=== PATIENT | female | born 1950 | race African-American/Black ===

== ENCOUNTER 2016-07-31 13:03 | Emergency (ER) | payer MEDICARE, MEDICAID ==
[2016-07-31] MEDS ORDERED: Benzonatate 100 MG CAP ONE (14:08)
[2016-07-31] MEDS ORDERED: Nitroglycerin 0.4 MG TAB 1 EACH ONE (14:08)
--- NOTE | 2016-07-31 14:28 | ERRECORD ---
[facility] EMERGENCY RECORD HPI COUGH (15:48 LHOD) CHIEF COMPLAINT: Patient presents for evaluation of cough. HISTORIAN: History provided by patient. TIME COURSE: 3 DAYS OF DRY COUGH. ASSOCIATED WITH: No associated chest pain, No associated chills, No associated diarrhea, No associated diaphoresis, No associated dyspnea on exertion, No associated fever, No associated nausea, No associated orthopnea, No associated palpitations, No associated peripheral edema, No associated pleuritic symptoms, No associated stridor, No associated wheezing. EXACERBATED BY: Patient's condition exacerbated by nothing. RELIEVED BY: Patient's condition relieved by nothing. ROS (15:50 LHOD) CONSTITUTIONAL: Historian denies chills, denies fever. ENT: Historian denies stridor. CARDIOVASCULAR: Historian denies chest pain, denies diaphoresis, denies dyspnea on exertion, denies orthopnea, denies palpitations. RESPIRATORY: Historian reports cough, denies stridor, denies wheezing. GI: Historian denies abdominal pain, denies diarrhea, denies nausea, denies vomiting. SKIN: Historian denies rash. NEUROLOGIC: Historian denies headache. HEMO/LYMPHATIC: Historian denies easy bruising. ALLERGIC/IMMUNOLOGIC: Historian denies hives. NOTES: All systems reviewed, negative except as described above. PAST MEDICAL HISTORY MEDICAL HISTORY: Past medical history includes cardiac history, coronary artery disease, congestive heart failure, Past medical history includes history of diabetes, Type II, Past medical history includes history of hypertension, which has been treated, Flu vaccine not up to date, Tetanus not up to date, Pneumococcal vaccine not up to date, Past medical history includes cardiac history, congestive heart failure, Past medical history includes history of diabetes, on insulin, Past medical history includes history of hyperlipidemia, high cholesterol, Past medical history includes history of hypertension, which has been treated. (13:35 MDEB) FEMALE SURGICAL HISTORY: Patient has no surgical history, Patient's surgical history not available at time of evaluation. (13:35 MDEB) PSYCHIATRIC HISTORY: Notes: DENIES, Notes: UNKNOWN. (13:35 MDEB) SOCIAL HISTORY: Patient denies alcohol use, Patient denies drug use, Patient has no smoking history, Patient denies alcohol use, Patient denies drug use, Patient has no smoking history, Lives at home, with family, Patient denies alcohol use, Patient denies drug use, Patient has no smoking history, Lives at home, with family, Patient denies alcohol use, Patient denies drug use, Patient has no &a-1R&a+25V*p+0X*q5806O*c202B*c15G*c2P*p-0X&a-25V&a+1R Name: Karla Drummond : 1950 F66 MedRec: [id number] AcctNum: [id number] Prepared: Sat Jul 31, 2016 15:57 by Interface Page 1 of 3 pMD [facility] EMERGENCY RECORD smoking history. (13:35 MDEB) NOTES: Nursing records reviewed, SISTER AND SON HERE WITH SAME SYMPTOMS. (15:52 LHOD) KNOWN ALLERGIES No Known Allergies No Known Drug Allergies (Unconfirmed) CURRENT MEDICATIONS No recorded medications VITAL SIGNS (13:33 MDEB) VITAL SIGNS: BP: 201/67, Pulse: 87, Resp: 18, Temp: 98.4 (Tympanic), Pain: 0, O2 sat: 95 on Room Air, Time: 07/31/2016 13:33. PHYSICAL EXAM (15:50 LHOD) CONSTITUTIONAL: Vital Signs Reviewed, Patient afebrile, Pulse normal, Blood pressure, hypertensive, Respiratory rate normal, Normal pulse oximetry, Patient appears non toxic, Patient alert and oriented to person, place and time, APPEARS OLDER THAN STATED AGE. WALKS STOOPED. EYES: Pupils equally round and reactive to light, Extraocular muscles intact. ENT: Pharynx exam normal. RESPIRATORY CHEST: Respiratory exam included findings of no respiratory distress, Breath sounds clear. CARDIOVASCULAR: Cardiovascular exam included findings of heart rate regular rate and rhythm, Heart sounds normal. ABDOMEN FEMALE: Abdominal exam included findings of abdomen nontender. UPPER EXTREMITY: Upper extremity exam normal. LOWER EXTREMITY: Left lower leg exam included findings of, swelling, Right lower leg exam included findings of, swelling, BILATERAL 1 PLUS EDEMA. NEURO: AWAKE, ALERT. SKIN: no rash. MEDICATION ADMINISTRATION SUMMARY Drug Name: nitroglycerin sublingual, Dose Ordered: 0.4 mg, Route: Sublingual, Status: Canceled, Time: 14:10 07/31/2016, Drug Name: benzonatate, Dose Ordered: 200 mg, Route: Oral, Status: Given, Time: 14:10 07/31/2016, Detailed record available in Medication Service section. PROBLEM LIST No recorded problems DIAGNOSIS (14:06 LHOD) FINAL: PRIMARY: VIRAL URI, ADDITIONAL: POORLY &a-1R&a+25V*p+0X*h6580L*c202B*c15G*c2P*p-0X&a-25V&a+1R Name: Karla Drummond : 1950 F66 MedRec: [id number] AcctNum: [id number] Prepared: Sat Jul 31, 2016 15:57 by Interface Page 2 of 3 pMD [facility] EMERGENCY RECORD CONTROLLED HYPERTENSION. PRESCRIPTION (14:06 LHOD) benzonatate: CAPSULE (HARD, SOFT, ETC.) : 200 mg : ORAL : Quantity: 1 Unit: tab(s) Route: ORAL Schedule: every 8 hours PRN Dispense: 10 May substitute. Refills: No Refills . NOTES: 1 REFILL No Refills. DISPOSITION PATIENT: Disposition Type: Discharge, Disposition: *Discharge Home, Condition: Good. (14:06 LHOD) Patient left the department. (14:23 MDEB) Valle: LHOD=MD Marcos, Hugo MDEB=RACHELLE Stewart, Radha &a-1R&a+25V*p+0X*z3985G*c202B*c15G*c2P*p-0X&a-25V&a+1R Name: Karla Drummond : 1950 F66 MedRec: [id number] AcctNum: [id number] Prepared: Sat Jul 31, 2016 15:57 by Interface Page 3 of 3 pMD MTDD
--- NOTE | 2016-07-31 14:34 | PICIS ---
[facility] EMERGENCY RECORD TRIAGE (13:35 MDEB) PATIENT: NAME: Karla Drummond, AGE: 66, GENDER: female, : Tue1950, TIME OF GREET: Sat Jul 31, 2016 13:04, PREFERRED LANGUAGE: Albanian, RACE: Black or , ETHNICITY: Not or , FALL RISK: NO, ECODE BILLING MAP: [facility], SSN: [id number], Zip Code: [address], KG WEIGHT: 130.63, PHONE: , , , PERSON ID: [id number], PCP: MD OAKES IMELDA. (13:35 MDEB) TRIAGE NOTES: COUGH X 3 DAYS. (13:35 MDEB) COMPLAINT: FLU LIKE SYMPTOMS. (13:35 MDEB) ADMISSION: URGENCY: 3 Urgent, ADMISSION SOURCE: Home, TRANSPORT: Walk-in, BED: TRIAGE. (13:35 MDEB) PAIN: Notes: DENIES. (13:35 MDEB) TRIAGE SCREENING: Patient denies suicidal ideation, Patient denies presence of domestic violence. (13:35 MDEB) PROVIDERS: TRIAGE NURSE: Radha Stewart RN. (13:35 MDEB) VITAL SIGNS: BP 201/67, Pulse 87, Resp 18, Temp 98.4, (Tympanic), Pain 0, O2 Sat 95, on Room Air, Time 07/31/2016 13:33. (13:33 MDEB) PREVIOUS VISIT ALLERGIES: No Known Allergies. (13:35 MDEB) KNOWN ALLERGIES No Known Allergies No Known Drug Allergies (Unconfirmed) CURRENT MEDICATIONS No recorded medications VITAL SIGNS (13:33 MDEB) VITAL SIGNS: BP: 201/67, Pulse: 87, Resp: 18, Temp: 98.4 (Tympanic), Pain: 0, O2 sat: 95 on Room Air, Time: 07/31/2016 13:33. NURSING ASSESSMENT: RESPIRATORY /CHEST (13:42 MDEB) CONSTITUTIONAL: Patient arrives ambulatory, Gait steady, History obtained from patient, Patient appears comfortable, Patient cooperative, Patient alert, Oriented to person, place and time, Skin warm, Skin dry, Skin normal in color, Mucous membranes pink, Mucous membranes moist, Patient is well-groomed, Patient complains of COUGH X 3 DAYS, NO NOTED COUGH DURING TRIAGE. A FEBRILE. PAIN: Patient rates pain as 0 out of 10. RESPIRATORY/CHEST: Breath sounds clear, Respiratory assessment findings include respiratory effort easy, Respirations regular, Conversing normally, Neck and chest exam findings include trachea midline, Chest expansion equal, Chest movement symmetrical, Associated with cough, dry. ENT: Ear assessment findings include ear normal to inspection, Nasal assessment findings include nose normal to inspection, Mouth and throat assessment findings include mouth inspection normal, Mucous membranes pink, and moist, Able to swallow, Speech normal. NOTES: Emotional support needed and given, Patient tolerated &a-1R&a+25V*p+0X*f2675N*c202B*c15G*c2P*p-0X&a-25V&a+1R Name: Karla Drummond : 1950 F66 MedRec: [id number] AcctNum: [id number] Prepared: Sat Jul 31, 2016 16:03 by Interface Page 1 of 5 pMD [facility] EMERGENCY RECORD procedure well. SAFETY: Side rails up, Cart/Stretcher in lowest position, Family at bedside, Call light within reach, Hospital ID band on. NURSING PROCEDURE: DISCHARGE NOTE (14:15 MDEB) DISCHARGE: Patient discharged to home, ambulating without assistance, driving self, accompanied by other family member, Summary of Care printed/ provided, Patient requested and was provided an electronic copy of Discharge Instructions, Transition record given to patient, Discharge instructions given to patient, Simple or moderate discharge teaching performed, MEDICATIONS, Prescriptions given and instructions on side effects given, Above person(s) verbalized understanding of discharge instructions and follow-up care, Patient treated and evaluated by physician. BELONGINGS: Belongings remain with patient, Valuables remain with patient. NOTES: Emotional support needed and given, Patient tolerated procedure well. MEDICATION ADMINISTRATION SUMMARY Drug Name: nitroglycerin sublingual, Dose Ordered: 0.4 mg, Route: Sublingual, Status: Canceled, Time: 14:10 07/31/2016, Drug Name: benzonatate, Dose Ordered: 200 mg, Route: Oral, Status: Given, Time: 14:10 07/31/2016, Detailed record available in Medication Service section. MEDICATION SERVICE (14:10 OD) benzonatate: Order: benzonatate - Dose: 200 mg : Oral Ordered by: Hugo Rodríguez MD Entered by: Hugo Rodríguez MD Sat Jul 31, 2016 14:05 , Acknowledged by: Radha Stewart RN Sat Jul 31, 2016 14:07 Documented as given by: Radha Stewart RN Sat Jul 31, 2016 14:10 Patient, Medication, Dose, Route and Time verified prior to administration. Amount given: 200 MG, Site: Medication administered P.O., Correct patient, time, route, dose and medication confirmed prior to administration, Patient advised of actions and side-effects prior to administration, Allergies confirmed and medications reviewed prior to administration, Patient in position of comfort, Cart in lowest position, Family at bedside. (CANCELED) nitroglycerin sublingual: Order: nitroglycerin sublingual (nitroglycerin) - Dose: 0.4 mg : Sublingual Ordered by: Hugo Rodríguez MD Entered by: Hugo Rodríguez MD Sat Jul 31, 2016 14:05 , Acknowledged by: Radha Stewart RN Sat Jul 31, 2016 14:06 Canceled by: Radha Stewart RN. Sat Jul 31, 2016 14:10 Cancel reason: Symptoms resolved:189/62. HPI COUGH (15:48 LHOD) &a-1R&a+25V*p+0X*e2432V*c202B*c15G*c2P*p-0X&a-25V&a+1R Name: Karla Drummond : 1950 F66 MedRec: [id number] AcctNum: [id number] Prepared: Sat Jul 31, 2016 16:03 by Interface Page 2 of 5 pMD [facility] EMERGENCY RECORD CHIEF COMPLAINT: Patient presents for evaluation of cough. HISTORIAN: History provided by patient. TIME COURSE: 3 DAYS OF DRY COUGH. ASSOCIATED WITH: No associated chest pain, No associated chills, No associated diarrhea, No associated diaphoresis, No associated dyspnea on exertion, No associated fever, No associated nausea, No associated orthopnea, No associated palpitations, No associated peripheral edema, No associated pleuritic symptoms, No associated stridor, No associated wheezing. EXACERBATED BY: Patient's condition exacerbated by nothing. RELIEVED BY: Patient's condition relieved by nothing. ROS (15:50 LHOD) CONSTITUTIONAL: Historian denies chills, denies fever. ENT: Historian denies stridor. CARDIOVASCULAR: Historian denies chest pain, denies diaphoresis, denies dyspnea on exertion, denies orthopnea, denies palpitations. RESPIRATORY: Historian reports cough, denies stridor, denies wheezing. GI: Historian denies abdominal pain, denies diarrhea, denies nausea, denies vomiting. SKIN: Historian denies rash. NEUROLOGIC: Historian denies headache. HEMO/LYMPHATIC: Historian denies easy bruising. ALLERGIC/IMMUNOLOGIC: Historian denies hives. NOTES: All systems reviewed, negative except as described above. PAST MEDICAL HISTORY MEDICAL HISTORY: Past medical history includes cardiac history, coronary artery disease, congestive heart failure, Past medical history includes history of diabetes, Type II, Past medical history includes history of hypertension, which has been treated, Flu vaccine not up to date, Tetanus not up to date, Pneumococcal vaccine not up to date, Past medical history includes cardiac history, congestive heart failure, Past medical history includes history of diabetes, on insulin, Past medical history includes history of hyperlipidemia, high cholesterol, Past medical history includes history of hypertension, which has been treated. (13:35 MDEB) FEMALE SURGICAL HISTORY: Patient has no surgical history, Patient's surgical history not available at time of evaluation. (13:35 MDEB) PSYCHIATRIC HISTORY: Notes: DENIES, Notes: UNKNOWN. (13:35 MDEB) SOCIAL HISTORY: Patient denies alcohol use, Patient denies drug use, Patient has no smoking history, Patient denies alcohol use, Patient denies drug use, Patient has no smoking history, Lives at home, with family, Patient denies alcohol use, Patient denies drug use, Patient has no smoking history, Lives at home, with family, Patient denies alcohol use, Patient denies drug use, Patient has no smoking history. (13:35 MDEB) &a-1R&a+25V*p+0X*l9291Z*c202B*c15G*c2P*p-0X&a-25V&a+1R Name: Karla Drummond : 1950 F66 MedRec: [id number] AcctNum: [id number] Prepared: Sat Jul 31, 2016 16:03 by Interface Page 3 of 5 pMD [facility] EMERGENCY RECORD NOTES: Nursing records reviewed, SISTER AND SON HERE WITH SAME SYMPTOMS. (15:52 LHOD) PHYSICAL EXAM (15:50 LHOD) CONSTITUTIONAL: Vital Signs Reviewed, Patient afebrile, Pulse normal, Blood pressure, hypertensive, Respiratory rate normal, Normal pulse oximetry, Patient appears non toxic, Patient alert and oriented to person, place and time, APPEARS OLDER THAN STATED AGE. WALKS STOOPED. EYES: Pupils equally round and reactive to light, Extraocular muscles intact. ENT: Pharynx exam normal. RESPIRATORY CHEST: Respiratory exam included findings of no respiratory distress, Breath sounds clear. CARDIOVASCULAR: Cardiovascular exam included findings of heart rate regular rate and rhythm, Heart sounds normal. ABDOMEN FEMALE: Abdominal exam included findings of abdomen nontender. UPPER EXTREMITY: Upper extremity exam normal. LOWER EXTREMITY: Left lower leg exam included findings of, swelling, Right lower leg exam included findings of, swelling, BILATERAL 1 PLUS EDEMA. NEURO: AWAKE, ALERT. SKIN: no rash. EVENTS TRANSFER: Triage to Emergency Triage. (Sat Jul 31, 2016 13:35 MDEB) Emergency Triage to Main ED -04. (13:35 MDEB) Removed from Emergency Main ED -04. (14:23 MDEB) PROBLEM LIST No recorded problems DIAGNOSIS (14:06 LHOD) FINAL: PRIMARY: VIRAL URI, ADDITIONAL: POORLY CONTROLLED HYPERTENSION. DISPOSITION PATIENT: Disposition Type: Discharge, Disposition: *Discharge Home, Condition: Good. (14:06 LHOD) Patient left the department. (14:23 MDEB) INSTRUCTION (14:07 LHOD) DISCHARGE: VIRAL URI ADULT, HYPERTENSION, ESTABLISHED, OUT OF CONTROL. FOLLOWUP: MD VIOLETTE, [facility], [facility], [address] [place] [id number], [phone], Follow up with Primary Care Physician as needed. SPECIAL: TAKE YOUR BLOOD PRESSURE MEDICATION PRESCRIBED. &a-1R&a+25V*p+0X*k1534V*c202B*c15G*c2P*p-0X&a-25V&a+1R Name: Karla Drummond : 1950 F66 MedRec: [id number] AcctNum: [id number] Prepared: Luis Jul 31, 2016 16:03 by Interface Page 4 of 5 pMD [facility] EMERGENCY RECORD Follow-up with your PCP *RETURN IF WORSE. PRESCRIPTION (14:06 LHOD) benzonatate: CAPSULE (HARD, SOFT, ETC.) : 200 mg : ORAL : Quantity: 1 Unit: tab(s) Route: ORAL Schedule: every 8 hours PRN Dispense: 10 May substitute. Refills: No Refills . NOTES: 1 REFILL No Refills. ADMIN (15:53 LHOD) DIGITAL SIGNATURE: MD Rodríguez Lefayne. MD Rodríguez Lefayne. Valle: LHOD=MD Rodríguez Lefayne MDEB=RACHELLE Stewart, Radha &a-1R&a+25V*p+0X*a8180L*c202B*c15G*c2P*p-0X&a-25V&a+1R Name: Karla Drummond : 1950 F66 MedRec: [id number] AcctNum: [id number] Prepared: Luis Jul 31, 2016 16:03 by Interface Page 5 of 5 pMD [facility]
== END 2016-07-31 14:15 | disposition home or self-care (01) ==
LOC: MADERS 13:03
DX: J06.9 Acute upper respiratory infection, unspecified (principal); I11.0 Hypertensive heart disease with heart failure; I50.9 Heart failure, unspecified; I25.10 Atherosclerotic heart disease of native coronary artery without angina pectoris; E11.9 Type 2 diabetes mellitus without complications; E78.5 Hyperlipidemia, unspecified; E78.00 Pure hypercholesterolemia, unspecified; Z79.4 Long term (current) use of insulin
CPT/HCPCS: 99283

== ENCOUNTER 2016-08-01 17:05 | Emergency (ER) | payer MEDICARE, MEDICAID ==
[~2016-08-01 17:05] MED LIST: Lidocaine 1% 20 ML MDV ONE
[2016-08-01] MEDS ORDERED: AMOXicillin 250 MG CAP ONE (17:37)
[2016-08-01] MEDS ORDERED: cefTRIAXone\\ROCEPHIN 1 GM VIAL ONE (17:37)
[2016-08-01] MEDS ORDERED: Phenergan/Codeine 10-6.25mg/5ml UDCUP ONE (17:37)
--- NOTE | 2016-08-01 18:21 | ERRECORD ---
[facility] EMERGENCY RECORD HPI COUGH (18:37 LLDO) CHIEF COMPLAINT: Patient presents for evaluation of cough, non-productive, Patient presents for evaluation of ill for 2-3 days. has not noted any fever. no sort throat of headache...just cough. HISTORIAN: History provided by patient, History provided by patient's spouse, pt was seen in this ed yesterday for same sx. pt was given script for tessalon but did not fill it. spouse wants a shot that will fix the cough. suspect cost of tessalon is part of the problem. pt is coughing nearly non-stop. LOCATION: Symptoms are generalized. QUALITY: Denies choking sensation, Denies tightness, Denies wheezing, Pain is dull in nature, described as aching. SEVERITY: Maximum severity of symptoms moderate, Currently symptoms are moderate. TIME COURSE: Gradual onset of symptoms, Symptoms are worsening, are constant. ASSOCIATED WITH: Associated symptoms reviewed, Associated with upper respiratory infection. EXACERBATED BY: Patient's condition exacerbated by nothing. RELIEVED BY: Patient's condition relieved by nothing. ROS CONSTITUTIONAL: Historian reports fatigue, reports fever. measured temperature of 102.1 today, Historian reports malaise. (18:48 LLDO) EYES: Negative eye review of systems, Historian denies eye pain, denies eye redness, denies eye discharge. (19:01 LLDO) ENT: Negative ears, nose, throat review of systems, Historian denies epistaxis, denies rhinorrhea, denies sinus pain, denies sore throat. (19:01 LLDO) CARDIOVASCULAR: Historian reports dyspnea on exertion. (18:48 LLDO) RESPIRATORY: Historian reports cough, denies shortness of breath, denies sputum, denies stridor, denies wheezing. (18:48 LLDO) GI: Negative gastrointestinal review of systems, Historian denies abdominal pain, denies constipation, denies diarrhea, denies nausea, denies vomiting. (19:01 LLDO) GENITOURINARY FEMALE: Negative genitourinary review of systems, Historian denies dysuria, denies frequency, denies urgency. (19:01 LLDO) MUSCULOSKELETAL: Negative musculoskeletal review of systems, Historian denies arthralgias, denies back pain, denies injury, denies myalgias, denies neck pain. (19:01 LLDO) SKIN: Negative skin review of systems, Historian denies cellulitis, denies rash, denies skin changes, denies skin lesions. (19:01 LLDO) NEUROLOGIC: Negative neurologic review of systems, Historian denies confusion, denies dizziness, denies focal weakness, denies &a-1R&a+25V*p+0X*l4561H*c202B*c15G*c2P*p-0X&a-25V&a+1R Name: Karla Drummond : 1950 F66 MedRec: [id number] AcctNum: [id number] Prepared: Araceli Aug 01, 2016 19:08 by Interface Page 1 of 4 pMD [facility] EMERGENCY RECORD mental status changes. (19:01 LLDO) HEMO/LYMPHATIC: Normal hematologic/lymphatic system review, Historian denies abnormal blood clotting, denies gum bleeding, denies petechiae. (19:01 LLDO) ALLERGIC/IMMUNOLOGIC: Normal allergy/immunologic system review, Historian denies eczema, denies environmental allergies, denies food allergies. (19:01 LLDO) PSYCHIATRIC: Negative psychiatric review of systems, Historian denies alcohol abuse, denies anxiety, denies depression, denies drug abuse, denies hallucinations. (19:01 LLDO) NOTES: All systems reviewed, negative except as described above. (18:48 LLDO) PAST MEDICAL HISTORY MEDICAL HISTORY: Past medical history includes cardiac history, coronary artery disease, congestive heart failure, Past medical history includes history of diabetes, Type II, Past medical history includes history of hypertension, which has been treated, Flu vaccine not up to date, Tetanus not up to date, Pneumococcal vaccine not up to date, Past medical history includes cardiac history, congestive heart failure, Past medical history includes history of diabetes, on insulin, Past medical history includes history of hyperlipidemia, high cholesterol, Past medical history includes history of hypertension, which has been treated. ([place] Aug 01, 2016 17:14 [facility] FEMALE SURGICAL HISTORY: Patient has no surgical history, Patient's surgical history not available at time of evaluation. ([place] Aug 01, 2016 17:14 [facility] PSYCHIATRIC HISTORY: Notes: DENIES, Notes: UNKNOWN. ([place] Aug 01, 2016 17:14 [facility]) SOCIAL HISTORY: Patient denies alcohol use, Patient denies drug use, Patient has no smoking history, Patient denies alcohol use, Patient denies drug use, Patient has no smoking history, Lives at home, with family, Patient denies alcohol use, Patient denies drug use, Patient has no smoking history, Lives at home, with family, Patient denies alcohol use, Patient denies drug use, Patient has no smoking history. (Araceli Aug 01, 2016 17:14 [facility]) NOTES: Nursing records reviewed, Agree with nursing records, Medication list reviewed. (19:01 LLDO) KNOWN ALLERGIES No Known Allergies CURRENT MEDICATIONS No recorded medications VITAL SIGNS (17:11 SCH[facility]) VITAL SIGNS: BP: 198/72, Pulse: 94, Temp: 102.1 (Tympanic), Pain: 0, O2 sat: 95, Time: 08/01/2016 17:11. &a-1R&a+25V*p+0X*p6913K*c202B*c15G*c2P*p-0X&a-25V&a+1R Name: Karla Drummond [place] : 1950 F66 MedRec: [id number] AcctNum: [id number] Prepared: Araceli Aug 01, 2016 19:08 by Interface Page 2 of 4 pMD [facility] EMERGENCY RECORD PHYSICAL EXAM CONSTITUTIONAL: Vital Signs Reviewed, Patient febrile, temperature of 102.1, Pulse normal, Blood pressure, BP IS ELEVATED, Respiratory rate normal, Normal pulse oximetry, Patient appears non toxic, Patient appears pain free, Patient alert and oriented to person, place and time, Nursing notes reviewed. (18:52 LLDO) HEAD: Head exam normal, Head exam included findings of head atraumatic, normocephalic. (19:01 LLDO) EYES: Eye exam normal, Eye exam included findings of eyelids normal to inspection, Pupils equally round and reactive to light, Extraocular muscles intact. (19:01 LLDO) ENT: ENT exam normal, Ear exam normal, Nose exam normal. (19:01 LLDO) NECK: Neck exam normal, Neck exam included findings of normal range of motion, Trachea midline, no meningeal signs, no tenderness. (19:01 LLDO) RESPIRATORY CHEST: Respiratory exam included findings of no respiratory distress, No wheezing, Rales present, Breath sounds not absent, Breath sounds not diminished, Chest exam included findings of chest movement symmetrical, Chest expansion equal, no tenderness, RALES MOD AND SCATTERED. (18:52 LLDO) CARDIOVASCULAR: Cardiovascular assessment normal, Cardiovascular exam included findings of heart rate regular rate and rhythm, Heart sounds normal. (19:01 LLDO) ABDOMEN FEMALE: Abdominal exam normal, Abdominal exam included findings of abdomen nontender, Bowel sounds normal, no peritoneal signs. (19:01 LLDO) BACK: Back exam normal, Back exam included findings of normal inspection, range of motion normal. (19:01 LLDO) UPPER EXTREMITY: Upper extremity exam normal, Upper extremity exam included findings of inspection normal, Range of motion normal. (19:01 LLDO) LOWER EXTREMITY: Lower extremity exam normal, Lower extremity exam included findings of inspection normal, Range of motion normal. (19:01 LLDO) NEURO: Neuro exam normal, Neuro exam findings include patient oriented to person, place and time, Speech normal, Delta coma scale 15. (19:01 LLDO) SKIN: Skin exam normal, Skin exam included findings of skin warm, dry, and normal in color, no rash. (19:01 LLDO) PSYCHIATRIC: Psychiatric exam normal, Psychiatric exam included findings of patient oriented to person place and time, Normal affect. (19:01 LLDO) MEDICATION ADMINISTRATION SUMMARY Drug Name: Phenergan-Codeine, Dose Ordered: 10 mL, Route: Oral, Status: Given, Time: 17:46 08/01/2016, Drug Name: amoxicillin, Dose Ordered: 500 mg, Route: Oral, Status: &a-1R&a+25V*p+0X*m5536V*c202B*c15G*c2P*p-0X&a-25V&a+1R Name: Karla Drummond : 1950 F66 MedRec: [id number] AcctNum: [id number] Prepared: Araceli Aug 01, 2016 19:08 by Interface Page 3 of 4 pMD [facility] EMERGENCY RECORD Given, Time: 17:45 08/01/2016, Drug Name: Rocephin intravenous, Dose Ordered: 1 g, Route: Intramuscular, Status: Given, Time: 17:44 08/01/2016, Detailed record available in Medication Service section. PROBLEM LIST No recorded problems DIAGNOSIS (17:34 LLDO) FINAL: PRIMARY: Acute bronchitis. PRESCRIPTION (17:35 LLDO) amoxicillin: CAPSULE (HARD, SOFT, ETC.) : 500 mg : ORAL : Quantity: 1 Unit: cap(s) Route: ORAL Schedule: 3 times a day Dispense: 30 May substitute. Refills: No Refills . NOTES: No Refills. Phenergan DM: SYRUP : : ORAL : Quantity: 1-2 Unit: teaspoon Route: ORAL Schedule: every 4 hours prn Dispense: 180 Unit: mL May substitute. Refills: No Refills . NOTES: ^s=No Refills No Refills. DISPOSITION PATIENT: Disposition Type: Discharge, Disposition: *Discharge Home. (17:34 LLDO) Patient left the department. (18:01 ANIL) [place]: DONALD=MD Kathia, Nikita [facility]=RACHELLE Napoles, Kevininda &a-1R&a+25V*p+0X*u1004P*c202B*c15G*c2P*p-0X&a-25V&a+1R Name: Karla Drummond : 1950 F66 MedRec: [id number] AcctNum: [id number] Prepared: Araceli Aug 01, 2016 19:08 by Interface Page 4 of 4 pMD [facility]D
--- NOTE | 2016-08-01 18:26 | PICIS ---
[facility] EMERGENCY RECORD TRIAGE (TueAug 01, 2016 17:14 SCHI) PATIENT: NAME: Karla Drummond, AGE: 66, GENDER: female, : Tue1950, TIME OF GREET: TueAug 01, 2016 17:06, PREFERRED LANGUAGE: [place], RACE: Black or , ETHNICITY: Not or , FALL RISK: NO, ECODE BILLING MAP: [facility] ER, SSN: [id number], Zip Code: [address], KG WEIGHT: [phone], PHONE: , , , PERSON ID: [id number], PCP: MD OAKES IMELDA. (TueAug 01, 2016 17:14 SCHI) TRIAGE NOTES: COUGH. (TueAug 01, 2016 17:14 SCHI) COMPLAINT: COUGH. (TueAug 01, 2016 17:14 SCHI) ADMISSION: URGENCY: 4 Non Urgent, ADMISSION SOURCE: Home, TRANSPORT: Walk-in, BED: ED -05. (TueAug 01, 2016 17:14 SCHI) ASSESSMENT: Assessment: ALERT AND ORIENTED X 4, SKIN WARM AND DRY RESP EVEN AND UNLABORED,. (TueAug 01, 2016 17:14 SCHI) PAIN: No complaint of pain. (TueAug 01, 2016 17:14 SCHI) TRIAGE SCREENING: Patient denies suicidal ideation, Patient denies presence of domestic violence. (TueAug 01, 2016 17:14 SCHI) PROVIDERS: TRIAGE NURSE: Melita Napoles RN. (TueAug 01, 2016 17:14 SCHI) VITAL SIGNS: BP 198/72, Pulse 94, Temp 102.1, (Tympanic), Pain 0, O2 Sat 95, Time 08/01/2016 17:11. (17:11 SCHI) PREVIOUS VISIT ALLERGIES: No Known Allergies. (TueAug 01, 2016 17:14 SCHI) KNOWN ALLERGIES No Known Allergies CURRENT MEDICATIONS No recorded medications VITAL SIGNS (17:11 SCHI) VITAL SIGNS: BP: 198/72, Pulse: 94, Temp: 102.1 (Tympanic), Pain: 0, O2 sat: 95, Time: 08/01/2016 17:11. NURSING ASSESSMENT: FOCUSED (:23 SCHI) CONSTITUTIONAL: Patient arrives ambulatory, Gait steady, History obtained from patient, Patient appears, uncomfortable, Patient cooperative, Patient alert, Oriented to person, place and time, Skin warm, Skin dry, Skin normal in color, Mucous membranes pink, Mucous membranes moist, Patient, with poor personal hygiene, dressed in multiple layers of clothing, intense smell of urine and body odor,, Patient complains of cough, was dx with flu yesterday here in ER. PAIN: aching pain, GENERAL,, constant. EYES: Focused eye assessment finding include pupils equally round and reactive to light. NEURO: Focused neuro assessment findings include patient alert, cooperative, No facial droop noted, Speech coherent. RESPIRATORY: Focused respiratory assessment findings include &a-1R&a+25V*p+0X*a9401L*c202B*c15G*c2P*p-0X&a-25V&a+1R Name: Karla Drummond : 1950 F66 MedRec: [id number] AcctNum: [id number] Prepared: Araceli Aug 01, 2016 19:08 by Interface Page [address] [facility] EMERGENCY RECORD breath sounds clear, Notes: COUGH, DRY. ABDOMEN: Focused abdominal assessment findings include abdomen soft, non tender. GENITOURINARY FEMALE: Focused genitourinary assessment not applicable. MUSCULOSKELETAL: Focused musculoskeletal assessment findings include normal range of motion. LACERATION: Focused laceration assessment not applicable. NOTES: Emotional support needed and given, Patient tolerated procedure well. SAFETY: Side rails up, Cart/Stretcher in lowest position, Family at bedside, Hospital ID band on. NURSING PROCEDURE: DISCHARGE NOTE DISCHARGE: Patient discharged to home, ambulating without assistance, family driving, accompanied by other family member, Summary of Care printed/ provided, Patient requested and was provided an electronic copy of Discharge Instructions, Transition record given to patient, Discharge instructions given to patient, Simple or moderate discharge teaching performed, Prescriptions given and instructions on side effects given, Medication reconciliation form given, Above person(s) verbalized understanding of discharge instructions and follow-up care, Patient treated and evaluated by physician. (17:50 SCHI) BELONGINGS: Belongings and valuables with patient at time of discharge include:, Belongings remain with patient, Valuables remain with patient. (17:50 SCHI) NOTES: Notes: relayed to pt and that hygiene was important and that a cool shower or bath to lower temp could be beneficial. (17:45 SCHI) SAFETY: Side rails up, Cart/Stretcher in lowest position, Family at bedside, Hospital ID band on. (17:50 SCHI) NURSING PROCEDURE: NURSE NOTES (17:19 SCHI) NURSES NOTES: Notes: pt is here because of cough, yesterday she was given rx for cough and she did not go get it filled, tried to explain to her that the pharmacy was open yesterday and today and that one family member could go get it before 6pm, but wants her to have a shot to help her sleep and to stop coughing, process of the course of flu explained to them no other complaints, states she is eating ok and taking motrin as needed. MEDICATION ADMINISTRATION SUMMARY Drug Name: Phenergan-Codeine, Dose Ordered: 10 mL, Route: Oral, Status: Given, Time: 17:46 08/01/2016, Drug Name: amoxicillin, Dose Ordered: 500 mg, Route: Oral, Status: Given, Time: 17:45 08/01/2016, Drug Name: Rocephin intravenous, Dose Ordered: 1 g, Route: Intramuscular, Status: Given, Time: 17:44 08/01/2016, Detailed record &a-1R&a+25V*p+0X*y1190F*c202B*c15G*c2P*p-0X&a-25V&a+1R Name: Karla Drummond : 1950 F66 MedRec: [id number] AcctNum: [id number] Prepared: Araceli Aug 01, 2016 19:08 by Interface Page [address] [facility] EMERGENCY RECORD available in Medication Service section. MEDICATION SERVICE amoxicillin: Order: amoxicillin (amoxicillin trihydrate) - Dose: 500 mg : Oral Schedule: Now Ordered by: Nikita Bae MD Entered by: MD Araceli Leach Aug 01, 2016 17:33 , Acknowledged by: RACHELLE Bautista Aug 01, 2016 17:36 Documented as given by: RACHELLE Bautista Aug 01, 2016 17:45 Patient, Medication, Dose, Route and Time verified prior to administration. Site: Medication administered P.O., Correct patient, time, route, dose and medication confirmed prior to administration, Patient advised of actions and side-effects prior to administration, Allergies confirmed and medications reviewed prior to administration. Phenergan-Codeine: Order: Phenergan-Codeine (promethazine HCl/codeine) - Dose: 10 mL : Oral Schedule: Now Ordered by: Nikita Bae MD Entered by: Nikita Bae MD [place] Aug 01, 2016 17:33 , Acknowledged by: Melita Napoles RN [place] Aug 01, 2016 17:36 Documented as given by: Melita Napoles RN [place] Aug 01, 2016 17:46 Patient, Medication, Dose, Route and Time verified prior to administration. Site: Medication administered P.O., Correct patient, time, route, dose and medication confirmed prior to administration, Patient advised of actions and side-effects prior to administration, Allergies confirmed and medications reviewed prior to administration. Rocephin intravenous: Order: Rocephin intravenous (ceftriaxone sodium) - Dose: 1 g : Intramuscular Schedule: Now Ordered by: Nikita Bae MD Entered by: Nikita Bae MD [place] Aug 01, 2016 17:33 , Acknowledged by: Melita Napoles RN [place] Aug 01, 2016 17:36 Documented as given by: Melita Napoles RN [place] Aug 01, 2016 17:44 Patient, Medication, Dose, Route and Time verified prior to administration. IM antibiotic, Medication administered to left buttock, Medication combined for administration with 1 %lidocaine, Correct patient, time, route, dose and medication confirmed prior to administration, Patient advised of actions and side-effects prior to administration, Allergies confirmed and medications reviewed prior to administration. HPI COUGH (18:37 LLDO) CHIEF COMPLAINT: Patient presents for evaluation of cough, non-productive, Patient presents for evaluation of ill for 2-3 days. has not noted any fever. no sort throat of headache...just cough. HISTORIAN: History provided by patient, History provided by patient's spouse, pt was seen in &a-1R&a+25V*p+0X*p3928H*c202B*c15G*c2P*p-0X&a-25V&a+1R Name: Hoda Karla Darwin : 1950 F66 MedRec: [id number] AcctNum: [id number] Prepared: Araceli Aug 01, 2016 19:08 by Interface Page [address] [facility] EMERGENCY RECORD this ed yesterday for same sx. pt was given script for tessalon but did not fill it. spouse wants a shot that will fix the cough. suspect cost of tessalon is part of the problem. pt is coughing nearly non-stop. LOCATION: Symptoms are generalized. QUALITY: Denies choking sensation, Denies tightness, Denies wheezing, Pain is dull in nature, described as aching. SEVERITY: Maximum severity of symptoms moderate, Currently symptoms are moderate. TIME COURSE: Gradual onset of symptoms, Symptoms are worsening, are constant. ASSOCIATED WITH: Associated symptoms reviewed, Associated with upper respiratory infection. EXACERBATED BY: Patient's condition exacerbated by nothing. RELIEVED BY: Patient's condition relieved by nothing. ROS CONSTITUTIONAL: Historian reports fatigue, reports fever. measured temperature of 102.1 today, Historian reports malaise. (18:48 LLDO) EYES: Negative eye review of systems, Historian denies eye pain, denies eye redness, denies eye discharge. (19:01 LLDO) ENT: Negative ears, nose, throat review of systems, Historian denies epistaxis, denies rhinorrhea, denies sinus pain, denies sore throat. (19:01 LLDO) CARDIOVASCULAR: Historian reports dyspnea on exertion. (18:48 LLDO) RESPIRATORY: Historian reports cough, denies shortness of breath, denies sputum, denies stridor, denies wheezing. (18:48 LLDO) GI: Negative gastrointestinal review of systems, Historian denies abdominal pain, denies constipation, denies diarrhea, denies nausea, denies vomiting. (19:01 LLDO) GENITOURINARY FEMALE: Negative genitourinary review of systems, Historian denies dysuria, denies frequency, denies urgency. (19:01 LLDO) MUSCULOSKELETAL: Negative musculoskeletal review of systems, Historian denies arthralgias, denies back pain, denies injury, denies myalgias, denies neck pain. (19:01 LLDO) SKIN: Negative skin review of systems, Historian denies cellulitis, denies rash, denies skin changes, denies skin lesions. (19:01 LLDO) NEUROLOGIC: Negative neurologic review of systems, Historian denies confusion, denies dizziness, denies focal weakness, denies mental status changes. (19:01 LLDO) HEMO/LYMPHATIC: Normal hematologic/lymphatic system review, Historian denies abnormal blood clotting, denies gum bleeding, denies petechiae. (19:01 LLDO) ALLERGIC/IMMUNOLOGIC: Normal allergy/immunologic system review, Historian denies eczema, denies environmental allergies, denies food &a-1R&a+25V*p+0X*g3213X*c202B*c15G*c2P*p-0X&a-25V&a+1R Name: Karla Drummond : 1950 F66 MedRec: [id number] AcctNum: [id number] Prepared: Araceli Aug 01, 2016 19:08 by Interface Page [address] [facility] EMERGENCY RECORD allergies. (19:01 LLDO) PSYCHIATRIC: Negative psychiatric review of systems, Historian denies alcohol abuse, denies anxiety, denies depression, denies drug abuse, denies hallucinations. (19:01 LLDO) NOTES: All systems reviewed, negative except as described above. (18:48 LLDO) PAST MEDICAL HISTORY MEDICAL HISTORY: Past medical history includes cardiac history, coronary artery disease, congestive heart failure, Past medical history includes history of diabetes, Type II, Past medical history includes history of hypertension, which has been treated, Flu vaccine not up to date, Tetanus not up to date, Pneumococcal vaccine not up to date, Past medical history includes cardiac history, congestive heart failure, Past medical history includes history of diabetes, on insulin, Past medical history includes history of hyperlipidemia, high cholesterol, Past medical history includes history of hypertension, which has been treated. (Araceli Aug 01, 2016 17:14 SCHI) FEMALE SURGICAL HISTORY: Patient has no surgical history, Patient's surgical history not available at time of evaluation. ([place] Aug 01, 2016 17:14 SCHI) PSYCHIATRIC HISTORY: Notes: DENIES, Notes: UNKNOWN. ([place] Aug 01, 2016 17:14 SCHI) SOCIAL HISTORY: Patient denies alcohol use, Patient denies drug use, Patient has no smoking history, Patient denies alcohol use, Patient denies drug use, Patient has no smoking history, Lives at home, with family, Patient denies alcohol use, Patient denies drug use, Patient has no smoking history, Lives at home, with family, Patient denies alcohol use, Patient denies drug use, Patient has no smoking history. (Araceli Aug 01, 2016 17:14 SCHI) NOTES: Nursing records reviewed, Agree with nursing records, Medication list reviewed. (19:01 LLDO) PHYSICAL EXAM CONSTITUTIONAL: Vital Signs Reviewed, Patient febrile, temperature of 102.1, Pulse normal, Blood pressure, BP IS ELEVATED, Respiratory rate normal, Normal pulse oximetry, Patient appears non toxic, Patient appears pain free, Patient alert and oriented to person, place and time, Nursing notes reviewed. (18:52 LLDO) HEAD: Head exam normal, Head exam included findings of head atraumatic, normocephalic. (19:01 LLDO) EYES: Eye exam normal, Eye exam included findings of eyelids normal to inspection, Pupils equally round and reactive to light, Extraocular muscles intact. (19:01 LLDO) ENT: ENT exam normal, Ear exam normal, Nose exam normal. (19:01 LLDO) NECK: Neck exam normal, Neck exam included findings of normal range of motion, Trachea midline, no meningeal signs, no tenderness. &a-1R&a+25V*p+0X*s7261U*c202B*c15G*c2P*p-0X&a-25V&a+1R Name: Karla Drummond : 1950 F66 MedRec: [id number] AcctNum: [id number] Prepared: Araceli Aug 01, 2016 19:08 by Interface Page [address] [facility] EMERGENCY RECORD (19:01 LLDO) RESPIRATORY CHEST: Respiratory exam included findings of no respiratory distress, No wheezing, Rales present, Breath sounds not absent, Breath sounds not diminished, Chest exam included findings of chest movement symmetrical, Chest expansion equal, no tenderness, RALES MOD AND SCATTERED. (18:52 LLDO) CARDIOVASCULAR: Cardiovascular assessment normal, Cardiovascular exam included findings of heart rate regular rate and rhythm, Heart sounds normal. (19:01 LLDO) ABDOMEN FEMALE: Abdominal exam normal, Abdominal exam included findings of abdomen nontender, Bowel sounds normal, no peritoneal signs. (19:01 LLDO) BACK: Back exam normal, Back exam included findings of normal inspection, range of motion normal. (19:01 LLDO) UPPER EXTREMITY: Upper extremity exam normal, Upper extremity exam included findings of inspection normal, Range of motion normal. (19:01 LLDO) LOWER EXTREMITY: Lower extremity exam normal, Lower extremity exam included findings of inspection normal, Range of motion normal. (19:01 LLDO) NEURO: Neuro exam normal, Neuro exam findings include patient oriented to person, place and time, Speech normal, Delta coma scale 15. (19:01 LLDO) SKIN: Skin exam normal, Skin exam included findings of skin warm, dry, and normal in color, no rash. (19:01 LLDO) PSYCHIATRIC: Psychiatric exam normal, Psychiatric exam included findings of patient oriented to person place and time, Normal affect. (19:01 LLDO) EVENTS TRANSFER: Triage to Emergency Main ED -05. (Araceli Aug 01, 2016 17:14 SCHI) Removed from Emergency Main ED -05. (18:01 SCHI) PROBLEM LIST No recorded problems DIAGNOSIS (17:34 LLDO) FINAL: PRIMARY: Acute bronchitis. DISPOSITION PATIENT: Disposition Type: Discharge, Disposition: *Discharge Home. (17:34 LLDO) Patient left the department. (18:01 SCHI) INSTRUCTION (17:36 LLDO) DISCHARGE: BRONCHITIS, ABX TX (ADULT). FOLLOWUP: MD VIOLETTE, [facility], [facility], [address] [place] [id number], [phone], Follow up with Primary Care Physician in 7-10 days. &a-1R&a+25V*p+0X*j5423V*c202B*c15G*c2P*p-0X&a-25V&a+1R Name: Karla Drummond : 1950 F66 MedRec: [id number] AcctNum: [id number] Prepared: Araceli Aug 01, 2016 19:08 by Interface Page [address] [facility] EMERGENCY RECORD SPECIAL: Follow-up with your PCP. PRESCRIPTION (17:35 LLDO) amoxicillin: CAPSULE (HARD, SOFT, ETC.) : 500 mg : ORAL : Quantity: 1 Unit: cap(s) Route: ORAL Schedule: 3 times a day Dispense: 30 May substitute. Refills: No Refills . NOTES: No Refills. Phenergan DM: SYRUP : : ORAL : Quantity: 1-2 Unit: teaspoon Route: ORAL Schedule: every 4 hours prn Dispense: 180 Unit: mL May substitute. Refills: No Refills . NOTES: ^s=No Refills No Refills. IMAGING *DISCHARGE INSTRUCTIONS RECEIPT: Image captured from scanner. (17:57 SCHI) *SUPPLY CHARGE SHEET: Image captured from scanner. (17:58 SCHI) ADMIN DIGITAL SIGNATURE: RACHELLE Napoles, Melita. (18:01 SCHI) MD Bae Lloyd. (19:03 DO) Valle: LL=MD Bae Lloyd SCHI=RACHELLE Napoles Slinda &a-1R&a+25V*p+0X*y3259N*c202B*c15G*c2P*p-0X&a-25V&a+1R Name: Karla Drummond : 1950 F66 MedRec: [id number] AcctNum: [id number] Prepared: Araceli Aug 01, 2016 19:08 by Interface Page [address] [facility] MEDICATION RECONCILIATION You were seen in the Emergency Department on: Araceli Aug 01, 2016 KNOWN ALLERGIES No Known Allergies MEDICATIONS GIVEN WHILE IN THE EMERGENCY DEPARTMENT amoxicillin (amoxicillin trihydrate) - Dose: 500 milligram(s) : Oral Phenergan-Codeine (promethazine HCl/codeine) - Dose: 10 milliliter(s) : Oral Rocephin intravenous (ceftriaxone sodium) - Dose: 1 gram(s) : Intramuscular Notes from the emergency department Reviewed with family Reviewed with patient PRESCRIPTIONS (2) Printed (2) amoxicillin : CAPSULE (HARD, SOFT, ETC.) : 500 mg : ORAL Quantity: 1, Unit: cap(s), Route: ORAL, Schedule: 3 times a day, Dispense: 30 &a-1R&a+25V*p+0X*e3218C*c202B*c15G*c2P*p-0X&a-25V&a+1R Name: Karla Drummond : 1950 F66 MedRec: [id number] AcctNum: [id number] Prepared: Araceli Aug 01, 2016 19:08 by Interface pMAlejandro NICOLAS
== END 2016-08-01 17:50 | disposition home or self-care (01) ==
LOC: MADERS 17:05
DX: J20.9 Acute bronchitis, unspecified (principal); I11.0 Hypertensive heart disease with heart failure; I50.9 Heart failure, unspecified; I25.10 Atherosclerotic heart disease of native coronary artery without angina pectoris; E11.9 Type 2 diabetes mellitus without complications
CPT/HCPCS: 96372; J0696; J2001